=== PATIENT | male | born 1950 | race Caucasian/White ===

== ENCOUNTER → 2017-04-04 16:36 | Outpatient (CLI) | payer MEDICARE, OTHER ==
[2017-04-04 17:48] LABS: CHOL - HDL RATIO 3.8 ratio (2.3-4.9); LDL-HDL RATIO 2.2 ratio (1.5-3.5)
== END | disposition home or self-care (01) ==
LOC: D.LABREF 16:36
PROVIDERS: Internal Medicine Cardiovascular Disease
DX: E78.5 Hyperlipidemia, unspecified (principal)

== ENCOUNTER 2019-09-13 19:02 | Emergency (ER) | payer MEDICARE, OTHER ==
[~2019-09-13] VITALS: Ht 165.1 cm; Wt 68.2 kg
[2019-09-13 19:17] VITALS: Ht 165.1 cm; Wt 68.2 kg
[2019-09-13] MEDS ORDERED: ANDROGEL5 GM (19:20)
[2019-09-13 19:48] LABS: HEMATOCRIT 45.5 % (42.0-54.0); HEMOGLOBIN 15.7 g/dL (13.5-17.5); MCH 31.4 pg (26.0-34.0); MCHC 34.5 g/dL (31.0-37.0); PLATELET COUNT 86 10x3/uL (130-400); RDW 12.9 % (11.5-14.5)
[2019-09-13 19:51] LABS: BILIRUBIN NEGATIVE (NEGATIVE); GLUCOSE NEGATIVE (NEGATIVE); KETONE NEGATIVE (NEGATIVE); NITRITE NEGATIVE (NEGATIVE); UROBILINOGEN NORMAL (NORMAL)
[2019-09-13 19:58] LABS: WBC 1.4 10x3/uL (4.8-10.8)
[2019-09-13 20:03] LABS: CALC OSMOLALITY 269 mosm/kg (275-300); CALCIUM 8.3 mg/dL (8.5-10.1); CARBON DIOXIDE 28.6 mmol/L (21.0-32.0); CHLORIDE - SERUM 101 mmol/L (98-107); CREATININE - SERUM 0.9 mg/dL (0.6-1.3); GLUCOSE 110 mg/dL (74-106); POTASSIUM - SERUM 4.2 mmol/L (3.5-5.1); SODIUM 135 mmol/L (136-145); UREA NITROGEN 10 mg/dL (7-18); eGFR NON AFRICAN AMERICAN 89 mL/min (90-120)
[2019-09-13 20:16] LABS: ALBUMIN 3.4 g/dL (3.4-5.0); ALKALINE PHOSPHATASE 134 U/L (30-120); ALT (SGPT) 331 U/L (10-68); BILIRUBIN - TOTAL 0.68 mg/dL (0.2-1.3); C-REACTIVE PROTEIN 10.9 mg/dL (0.0-0.9); CREATINE KINASE 66 UL (21-232); LIPASE 121 U/L (73-393); MAGNESIUM - SERUM 1.8 mg/dL (1.8-2.4); PRO BNP 601 pg/mL (0-125); PROTEIN - SERUM 6.7 g/dL (6.4-8.2); THYROID STIMULATING HORMONE 3.22 uIU/mL (0.36-3.74); TROPONIN-I < 0.017 ng/mL (0.000-0.060)
[2019-09-13 20:19] LABS: LYMPHOCYTES 37 % (15-50); MONOCYTES 8 % (2-11); NEUTROPHILS 54 % (40-80); PLATELET ESTIMATE DECREASED; PLATELET MORPHOLOGY NORMAL PLT MORPH
[2019-09-13 23:24] VITALS: BP 123/87
== END 2019-09-13 23:54 | disposition home or self-care (01) ==
LOC: D.ER 19:02
PROVIDERS: Family Medicine
DX: D72.819 Decreased white blood cell count, unspecified (principal); R51 Headache; M79.10 Myalgia, unspecified site; M54.5 Low back pain; R50.9 Fever, unspecified